=== PATIENT | male | born 1965 | race Two or more races ===

== ENCOUNTER 2019-08-07 12:47 | Emergency (ER) | payer OTHER, MEDICAID ==
[~2019-08-07] VITALS: Ht 177.8 cm; Wt 113.4 kg
[2019-08-07] MEDS ORDERED: SODIUM CHLORIDE 0.9% 1,000 ML IV ONE ×2 (13:13)
[2019-08-07 13:54] LABS: Basophils # (auto) 0.1 uL; Basophils % (auto) 0.8 % (0.0-2.0); Eosinophils # (auto) 0.2 uL; Eosinophils % (auto) 2.6 % (0.0-7.0); Hematocrit 46.6 % (41.0-53.0); Hemoglobin 15.5 g/dL (13.5-17.5); Lymphocytes # (auto) 1.9 uL; Lymphocytes % (auto) 23.5 % (10.0-50.0); Mean Corpuscular Hemoglobin 29.3 pg (28.0-32.0); Mean Corpuscular Hgb Conc. 33.2 g/dL (32.0-36.0); Mean Corpuscular Volume 88.1 fL (80.0-100.0); Monocytes # (auto) 0.6 uL; Monocytes % (auto) 7.8 % (0.0-12.0); Neutrophils # (auto) 5.3 uL; Neutrophils % (auto) 65.3 % (37.0-80.0); Nucleated Red Blood Cells % 0.1 %; Platelet Count (auto) 227 10^3/uL (140-450); Red Blood Cells 5.29 10^6/uL (4.5-5.90); Red Cell Distribution Width 13.5 % (11.8-14.3); White Blood Cell 8.1 10^3/uL (4.4-10.8)
[2019-08-07 14:16] LABS: Albumin 3.2 g/dL (3.4-5.0); Anion Gap 6 (5-15); BUN/Creatinine Ratio 15.9; Blood Urea Nitrogen 17 mg/dL (7-18); Calcium 8.5 mg/dL (8.5-10.1); Carbon Dioxide 29 mmol/L (21-32); Chloride 104 mmol/L (98-107); GFR African American 92 mL/min; GFR Non-African American 76 mL/min; Glucose 160 mg/dL (74-106); Sodium 139 mmol/L (136-145)
[2019-08-07 14:22] LABS: Alanine Aminotransferase 33 U/L (16-61); Alkaline Phosphatase 97 U/L (45-117); Aspartate Aminotransferase 24 U/L (15-37); Bilirubin, Total 0.3 mg/dL (0.2-1.0); Total Protein 7.3 g/dL (6.4-8.2)
[2019-08-07 16:34] VITALS: BP 109/55
== END 2019-08-07 16:54 | disposition home or self-care (01) ==
LOC: ER 12:47 → EDBD 12:47 → ER 16:44
DX: F15.10 Other stimulant abuse, uncomplicated (principal); R07.89 Other chest pain; R05 Cough; R61 Generalized hyperhidrosis
CPT/HCPCS: 36415; 71045; 74176; 80053; 84484; 85025; 93005; 99284; J7030

== ENCOUNTER 2024-05-07 04:21 | Emergency (ER) | payer OTHER, MEDICAID ==
[~2024-05-07] VITALS: Ht 177.8 cm; Wt 118.0 kg
[2024-05-07 04:21] VITALS: TEMP 98.4
[2024-05-07 04:24] VITALS: BP 151/89; O2SAT 97
[2024-05-07] MEDS ORDERED: IBUP-1455 PO (05:07)
[2024-05-07] MEDS: DexAMETHasone SOD PHOS 10MG/1ML VIAL INJ IM ONE (05:10)
[2024-05-07] MEDS: KETOROLAC TROMETH 60MG/2ML VIAL IM ONE (05:12)
[2024-05-07 05:19] VITALS: PULSE 91; RESP 18
== END 2024-05-07 05:08 | disposition home or self-care (01) ==
LOC: ER 04:21 → EDBD 04:21 → ER 05:08
DX: M10.9 Gout, unspecified (principal); F17.210 Nicotine dependence, cigarettes, uncomplicated; F15.90 Other stimulant use, unspecified, uncomplicated
CPT/HCPCS: 96372; 99284; J1100; J1885